=== PATIENT | female | born 1960 | race Asian ===

== ENCOUNTER 2018-01-25 18:18 | Emergency (ER) | payer OTHER ==
[~2018-01-25] VITALS: Ht 144.8 cm; Wt 55.5 kg
[2018-01-25] MEDS ORDERED: HYDR25TA PO (18:34)
[2018-01-25] MEDS ORDERED: ACETAMINOPHEN 500 MG TABLET PO ONE (20:30)
[2018-01-25 23:40] VITALS: BP 139/81
== END 2018-01-25 23:58 | disposition home or self-care (01) ==
LOC: EMS 18:23
DX: S09.90XA Unspecified injury of head, initial encounter (principal); I10 Essential (primary) hypertension; W22.8XXA Striking against or struck by other objects, initial encounter; Y93.89 Activity, other specified; Y92.89 Other specified places as the place of occurrence of the external cause; Y99.8 Other external cause status
CPT/HCPCS: 70450; 99284